=== PATIENT | female | born 1995 | race Caucasian/White ===

== ENCOUNTER 2016-06-21 21:49 | Emergency (ER) | payer OTHER ==
[2016-06-21] MEDS ORDERED: LIDOCAINE 5% PATCH TD ONE (23:00)
[2016-06-21 23:14] LABS: HCG,QUALITATIVE URINE NEGATIVE
--- NOTE | 2016-06-22 08:16 | RAD ---
LUMBAR SPINE 3 VIEWS HISTORY: No back pain x4 weeks. Frontal, lateral, and frontal cone down views of lumbar spine acquired. COMPARISON: None. ALIGNMENT: Subtle retrolisthesis at L5-S1. DISC SPACES: Severe narrowing at L5-S1. COMPRESSION DEFORMITY: None. FACET JOINTS: Grossly unremarkable. DISPLACED FRACTURE FRAGMENT: None identified. IMPRESSION: Changes of prominent disc degeneration at L5-S1, no compression deformity or displaced fracture fragment.
== END 2016-06-21 23:56 | disposition home or self-care (01) ==
LOC: ED 21:49
DX: M54.42 Lumbago with sciatica, left side (principal)
CPT/HCPCS: 81025; 72100; 99283 ×2; A9270